=== PATIENT | female | born 1995 | race Caucasian/White ===

== ENCOUNTER 2024-06-21 04:51 | Emergency (ER) | payer MEDICAID ==
[~2024-06-21] VITALS: Ht 172.7 cm; Wt 72.6 kg
[2024-06-21 06:36] VITALS: BP 118/71; TEMP 98; O2SAT 98
== END 2024-06-21 06:37 | disposition home or self-care (01) ==
LOC: ER 05:03
DX: S29.8XXA Other specified injuries of thorax, initial encounter (principal); Z86.79 Personal history of other diseases of the circulatory system; Z60.2 Problems related to living alone; W22.8XXA Striking against or struck by other objects, initial encounter; Y93.89 Activity, other specified; Y92.89 Other specified places as the place of occurrence of the external cause; Y99.8 Other external cause status
CPT/HCPCS: 71045-TC